=== PATIENT | female | born 1955 | race Caucasian/White ===

== ENCOUNTER 2016-06-16 13:50 | Emergency (ER) | payer BC ==
[2016-06-16] MEDS ORDERED: Nitroglycerin 0.4 MG Tab.SL SL ONE (14:38)
--- NOTE | 2016-06-16 14:39 | EDM.PDOC ---
[id number] 4d CHEST PAIN Time Seen by Provider: 06/16/16 14:20 Source of Information: Reports: Patient History Limitations: Reports: No limitations - History of Present Illness INITIAL COMMENTS - FREE TEXT/NARRATIVE: 60-year-old female who was been having intermittent chest pressure in the epigastric area and anterior chest intermittently for the past couple of months. It doesn't seem to be positional or related to activity. She initially had it 2 months ago, it resolved for several weeks but she has been getting more episodes and today was very persistent so she came in to have it checked. No shortness of breath or diaphoresis, no nausea or vomiting. No radiation of pain to her back. Onset: unknown/unsure Location: Reports: chest, abdomen Quality: Reports: Pressure Severity: moderate Associated Symptoms: Reports: denies other symptoms - Related Data Allergies Allergy/AdvReac Type Severity Reaction Status Date / Time cephalexin [Cephalexin] Allergy Hives Verified 07/27/14 10:14 Penicillins Allergy Swelling Verified 07/27/14 10:14 Sulfa (Sulfonamide Allergy Swelling Verified 07/27/14 10:14 Antibiotics) Home Meds: Home Meds Aspirin [Halfprin] 81 mg PO DAILY 11/06/12 [History] Hydrochlorothiazide 25 mg PO DAILY 11/06/12 [History] Simvastatin [Zocor] 20 mg PO BEDTIME 11/06/12 [History] Verapamil HCl [Verapamil ER] 180 mg PO DAILY 11/06/12 [History] Metoprolol Tartrate 50 mg PO DAILY #0 11/08/12 [Rx] Anastrozole [Anastrozole] 1 tab PO DAILY 07/27/14 [History] Calcium Carbonate [Calcium] 500 mg PO DAILY 07/27/14 [History] Cholecalciferol (Vitamin D3) [Vitamin D3] 1,000 unit PO DAILY 07/27/14 [History] Past Medical History - Past Health History Medical/Surgical History: Denies Medical/Surgical History Cardiovascular History: Reports: Hypertension Other OB/BYN History: R mastectomy - Past Surgical History HEENT Surgical History: Reports: Tonsillectomy GI Surgical History: Reports: Cholecystectomy Other GI Surgeries/Procedures: Laperoscopy Other Musculoskeletal Surgeries/Procedures:: ganglion cyst pylonidal cyst x3 Social & Family History - Tobacco Use Smoking Status *Q: Light Tobacco Smoker Years of Tobacco use: 30 Packs/Tins Daily: 0.5 Used Tobacco, but Quit: No Second Hand Smoke Exposure: No - Caffeine Use Caffeine Use: Reports: Coffee - Alcohol Use Days Per Week of Alcohol Use: 3 Number of Drinks Per Day: 3 Total Drinks Per Week: 9 - Recreational Drug Use Recreational Drug Use: No - Living Situation & Occupation Occupation: employed ([employer]) ED ROS GENERAL - Review of Systems Review Of Systems: See Below Constitutional: Denies: fever, chills, malaise HEENT: Reports: No symptoms Respiratory: Denies: Shortness of Breath, Pleuritic Chest Pain Cardiovascular: Reports: Chest pain. Denies: Palpitations Endocrine: Denies: fatigue GI/Abdominal: Reports: Abdominal pain (In the epigastric area only). Denies: Nausea : Reports: no symptoms Musculoskeletal: Reports: no symptoms Skin: Reports: no symptoms Neurological: Denies: Dizziness, Headache Psychiatric: Reports: No symptoms ED EXAM, GENERAL - Physical Exam Exam: See Below Exam Limited By: No limitations General Appearance: alert, no apparent distress Eye Exam: bilateral eye: normal inspection (No jaundice) Neck: normal inspection. No: carotid bruit Respiratory/Chest: no respiratory distress, lungs clear Cardiovascular: regular rate, rhythm, extra beats (Occasional extra beats) GI/Abdominal: soft, non tender (I could not reproduce tenderness to palpation) Extremities: normal inspection. No: pedal edema Neurological: alert, oriented Psychiatric: normal affect, normal mood Skin Exam: Warm, Dry EKG INTERPRETATION Rhythm: NSR (With occasional PACs) ST-T: normal Course - Vital Signs Last Recorded V/S: Last Vital Signs Temp 97.7 F 06/16/16 13:59 Pulse 57 L 06/16/16 15:00 Resp 16 06/16/16 15:00 BP 100/53 L 06/16/16 15:00 Pulse Ox 96 06/16/16 15:00 - Orders/Labs/Meds Orders: Active Orders 24 hr Category Date Time Status EKG Documentation Completion [RC] ASDIRECTED Care 06/16/16 16:28 Active Chest 2V [CR] Routine Exams 06/16/16 15:56 Taken EKG 12 Lead [EK] Routine Ther 06/16/16 16:28 Ordered Labs: Laboratory Tests 06/16/16 06/16/16 06/16/16 Range/Units 15:06 15:06 15:06 WBC 6.9 (4.5-11.0) K/uL RBC 3.82 (3.30-5.50) M/uL Hgb 12.7 D (12.0-15.0) g/dL Hct 37.9 (36.0-48.0) % MCV 99 H (80-98) fL MCH 33 H (27-31) pg MCHC 34 (32-36) % Plt Count 196 (150-400) K/uL Neut % (Auto) 58 (36-66) % Lymph % (Auto) 26 (24-44) % [place] % (Auto) 12 H (2-6) % Eos % (Auto) 2 (2-4) % Baso % (Auto) 1 (0-1) % D-Dimer, Quantitative < 100 (0.0-400.0) ng/mL Sodium 138 L (140-148) mmol/L Potassium 3.5 L (3.6-5.2) mmol/L Chloride 102 (100-108) mmol/L Carbon Dioxide 26 (21-32) mmol/L Anion Gap 13.5 (5.0-14.0) mmol/L BUN 20 H D (7-18) mg/dL Creatinine 1.5 H D (0.6-1.0) mg/dL Est Cr Clr Drug Dosing 35.38 mL/min Estimated GFR (MDRD) 35 L (>60) Glucose 106 (74-106) mg/dL Calcium 8.7 (8.5-10.1) mg/dL Total Bilirubin 0.5 (0.2-1.0) mg/dL AST 28 (15-37) U/L ALT 31 (12-78) U/L Alkaline Phosphatase 66 (46-116) U/L Troponin I < 0.017 (0.000-0.056) ng/mL Total Protein 6.8 (6.4-8.2) g/dL Albumin 3.8 (3.4-5.0) g/dL Globulin 3.0 (2.3-3.5) g/dL Albumin/Globulin Ratio 1.3 (1.2-2.2) Meds: Medications Discontinued Medications Generic Name Dose Route Start Last Admin Trade Name Freq PRN Reason Stop Dose Admin Nitroglycerin 0.4 mg 06/16/16 14:38 06/16/16 14:41 Nitrostat SL 06/16/16 14:39 0.4 mg ONETIME ONE Administration - Re-Assessments/Exams Free Text/Narrative Re-Assessment/Exam: 06/16/16 16:09 Initial EKG showed no acute findings, the patient was given one sublingual nitroglycerin and she claims she had good improvement. CBC CMP and troponin were obtained. Troponin was 0, CBC was normal. A two-view chest x-ray was then obtained. D- dimer was less than 100. 06/16/16 16:47 Patient will be set up for a Cardiolite stress test and encouraged to take a daily Prilosec or Zantac. She will return if worsening or concerns. Departure - Departure Time of Disposition: 17:15 Disposition: Home, Self-Care 01 Condition: good Clinical Impression: Atypical chest pain Instructions: Nonspecific Chest Pain, [id number] Referrals: PCP,None [Primary Care Provider] - Forms: ED Department Discharge Care Plan Goals: Activity as tolerated, and stress test as scheduled. At daily Zantac or Prilosec may be beneficial. Return any time if worsening such as increased pain with shortness of breath, nausea or vomiting, or pain radiating into the arms or neck. - My Orders Last 24 Hours: My Active Orders 06/16/16 15:56 Chest 2V [CR] Routine 06/16/16 16:28 EKG Documentation Completion [RC] ASDIRECTED EKG 12 Lead [EK] Routine - Assessment/Plan Last 24 Hours: My Active Orders 06/16/16 15:56 Chest 2V [CR] Routine 06/16/16 16:28 EKG Documentation Completion [RC] ASDIRECTED EKG 12 Lead [EK] Routine
[2016-06-16 15:12] VITALS: BP 100/53
--- NOTE | 2016-06-17 11:18 | CR ---
Chest 2V INDICATION: dyspnea FINDINGS: Comparison 03/09/2007. Normal heart size. Lungs are clear. Thoracic curve with degenerative changes.
== END 2016-06-16 17:08 | disposition home or self-care (01) ==
LOC: JP.ED 13:50
DX: R07.89 Other chest pain (principal); I10 Essential (primary) hypertension; F17.210 Nicotine dependence, cigarettes, uncomplicated; Z79.82 Long term (current) use of aspirin; Z79.899 Other long term (current) drug therapy; Z88.0 Allergy status to penicillin; Z88.1 Allergy status to other antibiotic agents; Z88.2 Allergy status to sulfonamides; Z90.11 Acquired absence of right breast and nipple; Z90.49 Acquired absence of other specified parts of digestive tract
CPT/HCPCS: 36415; 71020; 80053; 84484; 85025; 85379; 93005; 99285; A9270

== ENCOUNTER 2019-12-29 06:18 | Day surgery (SDC) | payer BC ==
[2019-12-29] MEDS ORDERED: Sodium Chloride 0.9% 10 ML Syringe FLUSH PRN (07:00)
[2019-12-29 08:14] VITALS: BP 131/76; PULSE 76
--- NOTE | 2019-12-29 08:44 | OR ---
DATE OF PROCEDURE: 12/29/2019 SURGEON: Araceli Shaffer MD POSTOPERATIVE CARE: Postoperative care will be provided mainly at the [address] [place] [address] [facility] in conjunction with [facility]. PREOPERATIVE DIAGNOSIS: Cataract, left eye. POSTOPERATIVE DIAGNOSIS: Cataract, left eye. PROCEDURE: Phacoemulsification with intraocular lens placement, left eye. ANESTHESIA: Topical and intracameral. ESTIMATED BLOOD LOSS: Minimal. COMPLICATIONS: None. PATHOLOGY SPECIMENS: None. SURGICAL FINDINGS: None. INDICATION FOR PROCEDURE: The patient is a 64-year-old female with history of a visually significant cataract in the left eye, which interfered with activities of daily living. This consisted of a nuclear sclerosis cataract. Following careful discussion of the risks, benefits and alternatives to cataract extraction with intraocular lens placement including blindness and , the patient elected to proceed, and informed, written consent was obtained prior to the procedure. DESCRIPTION OF THE PROCEDURE: The patient was previously identified, and a kanchan placed above the left eye. All sources, including the patient, indicated that the left eye was the correct eye. The patient was subsequently taken to the operating room where standard monitors were applied. The patient was then prepped and draped in the usual sterile fashion for ophthalmic surgery. Attention was first directed at the 12 o'clock position where a paracentesis port was fashioned. Shugar solution followed by Viscoat was instilled into the eye. Attention was then directed to the 8:30 position where a triplanar incision was made in a near-clear manner using a keratome. A continuous capsulorrhexis was then made using a combination of the cystotome and Utrata forceps. Hydrodissection was achieved using a balanced salt solution, and the lens rotated nicely. Phacoemulsification was then done using a modified [id number]-[id number] technique without complication. Phaco time was 6.34 CDE. The remaining cortex was removed using the irrigation/aspiration handpiece. Provisc was then instilled into the eye. A Technis lens, model PCB00, at 20.5 Diopters was then placed in the capsular bag using an [place] injector. The remaining viscoelastic was removed using the irrigation/aspiration forceps. All wounds were then checked and found to be watertight. The lid speculum and drapes were removed. Maxitrol ointment was placed in the patient's left eye, and the eye was shielded. The patient tolerated the procedure well. The patient was instructed to follow up tomorrow. All needle and sponge counts were correct at the end of the procedure. Araceli Shaffer MD /[id number]
== END 2019-12-29 08:34 | disposition home or self-care (01) ==
LOC: JP.SDS 06:18
PROVIDERS: ATTEND Ophthalmology
DX: H26.9 Unspecified cataract (principal); I25.10 Atherosclerotic heart disease of native coronary artery without angina pectoris; I10 Essential (primary) hypertension
CPT/HCPCS: V2632

== ENCOUNTER 2020-01-19 07:12 | Day surgery (SDC) | payer BC ==
[~2020-01-19 07:12] MED LIST: Sodium Chloride 0.9% 10 ML Syringe FLUSH PRN
[2020-01-19] MEDS ORDERED: Midazolam 1 MG/ML 2 ML SDV ONE (08:14)
[2020-01-19 09:01] VITALS: BP 136/74; PULSE 83
--- NOTE | 2020-01-19 11:50 | OR ---
DATE OF PROCEDURE: 01/19/2020 SURGEON: Araceli Shaffer MD POSTOPERATIVE CARE: Postoperative care will be provided mainly at the [address] [place] [address] [facility] in conjunction with [facility]. PREOPERATIVE DIAGNOSIS: Cataract, right eye. POSTOPERATIVE DIAGNOSIS: Cataract, right eye. PROCEDURE: Phacoemulsification with intraocular lens placement, right eye. ANESTHESIA: Topical and intracameral. ESTIMATED BLOOD LOSS: Minimal. COMPLICATIONS: None. PATHOLOGY SPECIMENS: None. SURGICAL FINDINGS: None. INDICATION FOR PROCEDURE: The patient is a 64-year-old female with history of a visually significant cataract in the right eye, which interfered with activities of daily living. This consisted of a nuclear sclerosis cataract. Following careful discussion of the risks, benefits and alternatives to cataract extraction with intraocular lens placement including blindness and , the patient elected to proceed, and informed, written consent was obtained prior to the procedure. DESCRIPTION OF THE PROCEDURE: The patient was previously identified, and a kanchan placed above the right eye. All sources, including the patient, indicated that the right eye was the correct eye. The patient was subsequently taken to the operating room where standard monitors were applied. The patient was then prepped and draped in the usual sterile fashion for ophthalmic surgery. Attention was first directed at the 12 o'clock position where a paracentesis port was fashioned. Shugar solution followed by Viscoat was instilled into the eye. Attention was then directed to the 8:30 position where a triplanar incision was made in a near-clear manner using a keratome. A continuous capsulorrhexis was then made using a combination of the cystotome and Utrata forceps. Hydrodissection was achieved using a balanced salt solution, and the lens rotated nicely. Phacoemulsification was then done using a modified opvefn-vbd-[id number] technique without complication. Phaco time was 5.48 CDE. The remaining cortex was removed using the irrigation/aspiration handpiece. Provisc was then instilled into the eye. A Technis lens, model PCB00, at 20.5 diopters was then placed in the capsular bag using an [place] injector. The remaining viscoelastic was removed using the irrigation/aspiration forceps. All wounds were then checked and found to be watertight. The lid speculum and drapes were removed. Maxitrol ointment was placed in the patient's right eye, and the eye was shielded. The patient tolerated the procedure well. The patient was instructed to follow up tomorrow. All needle and sponge counts were correct at the end of the procedure. Araceli Shaffer MD /[id number]
== END 2020-01-19 09:30 | disposition home or self-care (01) ==
LOC: JP.SDS 07:12
PROVIDERS: ATTEND Ophthalmology
DX: H26.9 Unspecified cataract (principal); I25.10 Atherosclerotic heart disease of native coronary artery without angina pectoris; I10 Essential (primary) hypertension
CPT/HCPCS: J2250; V2632

== ENCOUNTER 2020-01-25 15:41 | Emergency (ER) | payer BC ==
[2020-01-25] MEDS ORDERED: Potassium Chloride 10 MEQ Cap.ER PO ONE (16:21)
--- NOTE | 2020-01-25 16:27 | EDM.PDOC ---
ED HPI GENERAL MEDICAL PROBLEM - General Chief Complaint: Cardiovascular Problem Stated Complaint: LOW BLOOD PRESSURE Time Seen by Provider: 01/25/20 16:10 Source of Information: Reports: Patient, Old Records, RN History Limitations: Reports: No Limitations - History of Present Illness INITIAL COMMENTS - FREE TEXT/NARRATIVE: 64 yo female was seen in the clinic today, Thursday and Thursday. On Thursday a Covid test was ordered and is still pending. Had cataract surgery to the R eye this past . Yesterday her BP was noted to be low so she was given a liter of IV fluids in the infusion center. Today her BP was low again so she was given another liter of IV fluids and today her BP did not come back up sufficiently so she was referred to the ER. She was noted yesterday and today to have hyponatremia and hypokalemia. She denies CP or SOB. Is achy over and feels weak. Has had some loose stools. Onset: Gradual Onset Date: 01/22/20 Duration: Day(s):, Getting Worse Location: Reports: Generalized Quality: Reports: Ache Severity: Moderate Improves with: Reports: None Worsens with: Reports: Other (time) Context: Reports: Other (See HPI) Associated Symptoms: Reports: Malaise, Weakness (generalized). Denies: Chest Pain, Cough, Fever/Chills, Nausea/Vomiting Treatments SAMPLE WEAVER: Reports: IV/IO Generalized Pain Score (Numeric/FACES): 7 - Related Data Allergies Allergy/AdvReac Type Severity Reaction Status Date / Time cephalexin [Cephalexin] Allergy Hives Verified 01/25/20 16:16 Penicillins Allergy Swelling Verified 01/25/20 16:16 Sulfa (Sulfonamide Allergy Swelling Verified 01/25/20 16:16 Antibiotics) codeine AdvReac Nausea and Verified 01/25/20 16:16 Vomiting Home Meds: Home Meds Simvastatin [Zocor] 20 mg PO BEDTIME 11/06/12 [History] Verapamil HCl [Verapamil ER] 360 mg PO DAILY 11/06/12 [History] hydroCHLOROthiazide [Hydrochlorothiazide] 50 mg PO DAILY 11/06/12 [History] lisinopriL [Lisinopril] 10 mg PO DAILY 12/27/19 [History] Aspirin [Halfprin] 81 mg PO DAILY 12/29/19 [History] Potassium Chloride 20 meq PO DAILY 01/25/20 [History] ondansetron HCL [Zofran] 4 mg PO Q8H 01/25/20 [History] Past Medical History - Past Health History Medical/Surgical History: Denies Medical/Surgical History HEENT History: Reports: Cataract Cardiovascular History: Reports: Hypertension Gastrointestinal History: Reports: Cholelithiasis Genitourinary History: Reports: None 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 pilonidol cyst remove Female Surgical History: Reports: Mastectomy Musculoskeletal Surgical History: Reports: Other (See Below) Other Musculoskeletal Surgeries/Procedures:: ganglion cyst pylonidal cyst x3 Social & Family History - Family History Family Medical History: No Pertinent Family History - Caffeine Use Caffeine Use: Reports: Coffee - Living Situation & Occupation Occupation: Employed ED ROS GENERAL - Review of Systems Review Of Systems: See Below Constitutional: Reports: Malaise, Weakness HEENT: Reports: No Symptoms Respiratory: Reports: No Symptoms Cardiovascular: Reports: No Symptoms GI/Abdominal: Reports: No Symptoms : Reports: No Symptoms Musculoskeletal: Reports: No Symptoms Skin: Reports: No Symptoms Neurological: Reports: No Symptoms ED EXAM, GENERAL - Physical Exam Exam: See Below Exam Limited By: No Limitations General Appearance: Alert, WD/WN, No Apparent Distress Eye Exam: Bilateral Eye: Normal Inspection Ears: Normal External Exam, Normal Canal, Hearing Grossly Normal, Normal TMs Ear Exam: Bilateral Ear: Auricle Normal, Canal Normal, TM normal Nose: Normal Inspection, No Blood Throat/Mouth: Normal Inspection, Normal Lips, Normal Oropharynx, Normal Voice, No Airway Compromise Head: Atraumatic, Normocephalic Neck: Normal Inspection Respiratory/Chest: No Respiratory Distress, Lungs Clear, Normal Breath Sounds, No Accessory Muscle Use Cardiovascular: Regular Rate, Rhythm, No Edema, Bradycardia GI/Abdominal: Normal Bowel Sounds, Soft, Non-Tender, No Distention Back Exam: Normal Inspection. No: CVA Tenderness (R), CVA Tenderness (L) Extremities: Normal Inspection, Normal Range of Motion, Non-Tender, No Pedal Edema Neurological: Alert, Oriented, CN II-XII Intact, Normal Cognition, No Motor/Sensory Deficits Psychiatric: Normal Affect, Normal Mood Skin Exam: Warm, Dry, Intact, Normal Color, No Rash Course - Vital Signs Last Recorded V/S: Last Vital Signs Temp 35.7 C L 01/25/20 16:03 Pulse 52 L 01/25/20 17:55 Resp 12 01/25/20 17:55 BP 77/41 L 01/25/20 17:55 Pulse Ox 100 01/25/20 17:55 - Orders/Labs/Meds Orders: Active Orders 24 hr Category Date Time Status Cardiac Monitoring [RC] .As Directed Care 01/25/20 16:17 Active Magnesium Sulfate/Water [Magnesium Sulfate in Water Med 01/25/20 17:12 Active Premix] 2 gm Premix Bag 1 bag IV ONETIME NS + KCl 20mEq/L [Normal Saline with 20 mEq KCl] 1,000 Med 01/25/20 16:30 Active ml IV ASDIRECTED Medication Orders Potassium Chloride/Sodium Chloride (Normal Saline With 20 Meq Kcl) 1,000 mls @ 1,000 mls/hr IV ASDIRECTED ELSY Last Admin: 01/25/20 16:51 Dose: 1,000 mls/hr Documented by: PREILOR Magnesium Sulfate 2 gm/ Premix 50 mls @ 25 mls/hr IV ONETIME ONE Stop: 01/25/20 19:11 Last Admin: 01/25/20 17:48 Dose: 25 mls/hr Documented by: PREILOR Labs: Laboratory Tests 01/25/20 01/25/20 Range/Units 16:37 16:37 Magnesium 1.3 L (1.8-2.4) mg/dL Troponin I < 0.017 (0.000-0.056) ng/mL Meds: Medications Generic Name Dose Route Start Last Admin Trade Name Freq PRN Reason Stop Dose Admin Potassium Chloride/Sodium Chloride 1,000 mls @ 1,000 mls/hr 01/25/20 16:30 01/25/20 16:51 Normal Saline With 20 Meq Kcl IV 1,000 mls/hr ASDIRECTED ELSY Administration Magnesium Sulfate 2 gm/ Premix 50 mls @ 25 mls/hr 01/25/20 17:12 01/25/20 17:48 IV 01/25/20 19:11 25 mls/hr ONETIME ONE Administration Discontinued Medications Generic Name Dose Route Start Last Admin Trade Name Orin PRN Reason Stop Dose Admin Acetaminophen 1,000 mg 01/25/20 16:39 01/25/20 16:54 Tylenol Extra Strength PO 01/25/20 16:40 1,000 mg ONETIME ONE Administration Acetaminophen Confirm 01/25/20 16:41 Tylenol Extra Strength Administered 01/25/20 16:42 Dose 1,000 mg .ROUTE .STK-MED ONE Magnesium Oxide 800 mg 01/25/20 17:12 01/25/20 17:46 Magnesium Oxide PO 01/25/20 17:13 800 mg ONETIME ONE Administration Potassium Chloride 40 meq 01/25/20 16:21 01/25/20 16:53 Potassium Chloride PO 01/25/20 16:22 40 meq ONETIME ONE Administration Departure - Departure Time of Disposition: 19:00 Disposition: Home, Self-Care 01 Condition: Fair Clinical Impression: Viral illness, Hyponatremia, Hypokalemia, Hypomagnesemia Low BP Qualifiers: Hypotension type: unspecified hypotension type Qualified Code(s): I95.9 - Hypotension, unspecified Referrals: Theo Dykes MD [Primary Care Provider] - Forms: ED Department Discharge Additional Instructions: Drink a sugar-free sport drink to maintain hydration. Take acetaminophen 1000 mg every 6 hrs with food for pain relief. Hold all your BP meds. Recheck in the clinic on Thursday. Avoid other people due to your likely contagious state. Return as needed. Sepsis Event Note (ED) - Evaluation Sepsis Screening Result: No Definite Risk - Focused Exam Vital Signs: Vital Signs Temp Pulse Resp BP Pulse Ox 01/25/20 17:55 52 L 12 77/41 L 100 01/25/20 17:20 55 L 18 85/45 L 100 01/25/20 16:50 55 L 18 87/48 L 98 01/25/20 16:25 48 L 16 76/42 L 100 01/25/20 16:03 35.7 C L 47 L 16 77/41 L 94 L - My Orders Last 24 Hours: My Active Orders 01/25/20 16:17 Cardiac Monitoring [RC] .As Directed 01/25/20 16:30 NS + KCl 20mEq/L [Normal Saline with 20 mEq KCl] 1,000 ml IV ASDIRECTED 01/25/20 17:12 Magnesium Sulfate/Water [Magnesium Sulfate in Water Premix] 2 gm Premix Bag 1 bag IV ONETIME - Assessment/Plan Last 24 Hours: My Active Orders 01/25/20 16:17 Cardiac Monitoring [RC] .As Directed 01/25/20 16:30 NS + KCl 20mEq/L [Normal Saline with 20 mEq KCl] 1,000 ml IV ASDIRECTED 01/25/20 17:12 Magnesium Sulfate/Water [Magnesium Sulfate in Water Premix] 2 gm Premix Bag 1 bag IV ONETIME
[2020-01-25] MEDS ORDERED: NS + KCl 20mEq/L 1,000 ML IV SCH (16:30)
[2020-01-25] MEDS ORDERED: Acetaminophen 500 MG Tab PO ONE (16:39)
[2020-01-25] MEDS ORDERED: Acetaminophen 500 MG Tab ONE (16:41)
[2020-01-25] MEDS ORDERED: Magnesium Oxide 400 MG Tab PO ONE (17:12)
[2020-01-25] MEDS ORDERED: Magnesium Sulfate/Water 2 GM in Premix Bag 1 BAG IV ONE (17:12)
[2020-01-25 18:57] VITALS: BP 72/34; PULSE 54
== END 2020-01-25 20:13 | disposition home or self-care (01) ==
LOC: JP.ED 15:41
DX: B34.9 Viral infection, unspecified (principal); E87.1 Hypo-osmolality and hyponatremia; E87.6 Hypokalemia; E83.42 Hypomagnesemia; I95.9 Hypotension, unspecified; I10 Essential (primary) hypertension; Z88.1 Allergy status to other antibiotic agents; Z88.0 Allergy status to penicillin; Z88.2 Allergy status to sulfonamides; Z88.5 Allergy status to narcotic agent; Z79.899 Other long term (current) drug therapy; Z79.82 Long term (current) use of aspirin
CPT/HCPCS: 36415; 83735; 84484; 96365; 96366; 96367; 99284; A9270; J3475; J3480

== ENCOUNTER 2023-03-31 12:06 | Emergency (ER) | payer OTHER ==
[2023-03-31] MEDS ORDERED: Aspirin 81 MG Tab.Chew PO ONE (12:28)
[2023-03-31] MEDS ORDERED: Sodium Chloride 0.9% 1,000 ML IV SCH (12:30)
[2023-03-31 12:32] LABS: BASOPHILS ABSOLUTE AUTO 0.07 K/uL (0.00-0.10); BASOPHILS PERCENT AUTO 1.2 % (0.1-1.3); EOSINOPHILS PERCENT AUTO 0.3 % (0.0-5.4); HEMOGLOBIN 13.3 g/dL (11.2-15.5); IMMATURE GRAN PERCENT AUTO 0.3 % (0.0-0.7); LYMPHOCYTES ABSOLUTE AUTO 1.59 K/uL (0.8-3.3); LYMPHOCYTES PERCENT AUTO 27.3 % (11.4-47.7); MEAN CORPUSCULAR HEMOGLOBIN 34.9 pg (31.6-35.5); MEAN CORPUSCULAR HGB CONC 33.3 g/dL (31.6-35.5); MONOCYTES ABSOLUTE AUTO 0.84 K/uL (0.20-0.90); MONOCYTES PERCENT AUTO 14.4 % (3.3-12.6); NEUTROPHILS ABSOLUTE AUTO 3.28 K/uL (1.0-7.6); NEUTROPHILS PERCENT AUTO 56.5 % (40.0-78.1); PLATELET COUNT,PLT 274 K/uL (130-375); RED BLOOD CELL COUNT 3.81 M/uL (3.77-5.24); WHITE BLOOD CELL COUNT,WBC 5.8 K/uL (3.2-11.0)
[2023-03-31 12:33] LABS: EOSINOPHILS ABSOLUTE AUTO 0.02 K/uL (0.00-0.40); IMMATURE GRAN ABSOLUTE AUTO 0.02 K/uL (0.00-0.23)
[2023-03-31] MEDS: Nitroglycerin 0.4 MG Tab.SL SL PRN ×2 (13:01→13:13)
[2023-03-31 13:20] LABS: A/G RATIO 1.1 (1.2-2.2); ALANINE AMINOTRANSFERASE,ALT 35 U/L (12-78); ALBUMIN 3.9 g/dL (3.4-5.0); ALKALINE PHOSPHATASE 75 U/L (46-116); ANION GAP 17.6 mmol/L (5.0-14.0); ASPARTATE AMNIOTRANSFERASE,AST 29 U/L (15-37); BILIRUBIN TOTAL 0.3 mg/dL (0.2-1.0); BLOOD UREA NITROGEN,BUN 26 mg/dL (7-18); CALCIUM 8.9 mg/dL (8.5-10.1); CARBON DIOXIDE,CO2 22 mmol/L (21-32); CHLORIDE,CL 100 mmol/L (100-108); CREATININE 0.8 mg/dL (0.6-1.0); EST CRCL DRUG DOSING (CG) 55.68 mL/min; ESTIMATED GFR 80 mL/min (>60); GLUCOSE RANDOM 93 mg/dL (74-106); POTASSIUM,K 4.6 mmol/L (3.6-5.2); PRO B-TYPE NATRIUR PEPT,BNPPRO 213 pg/mL (5-125); PROTEIN TOTAL,TP 7.3 g/dL (6.4-8.2); SODIUM,NA 135 mmol/L (140-148); TROPONIN I HIGH SENSITIVITY 13.4 pg/mL (<=60.3)
[2023-03-31 14:13] VITALS: BP 148/71; PULSE 67
== END 2023-03-31 15:24 | disposition home or self-care (01) ==
LOC: JP.ED 12:06
DX: R07.9 Chest pain, unspecified (principal); I10 Essential (primary) hypertension; F17.210 Nicotine dependence, cigarettes, uncomplicated; Z79.82 Long term (current) use of aspirin; Z79.899 Other long term (current) drug therapy; Z88.5 Allergy status to narcotic agent; Z88.0 Allergy status to penicillin; Z88.2 Allergy status to sulfonamides
CPT/HCPCS: 36415; 71045; 71045-26; 80053; 83605; 83880; 84484; 85025; 85379; 85610; 93005; 93010; 99284; 99285; A9270-GY; J7030

== ENCOUNTER 2023-06-07 10:27 | Emergency (ER) | payer OTHER ==
[2023-06-07 11:05] VITALS: BP 190/71; PULSE 55
[2023-06-07 11:15] LABS: BASOPHILS ABSOLUTE AUTO 0.04 K/uL (0.00-0.10); BASOPHILS PERCENT AUTO 0.5 % (0.1-1.3); EOSINOPHILS ABSOLUTE AUTO 0.05 K/uL (0.00-0.40); EOSINOPHILS PERCENT AUTO 0.7 % (0.0-5.4); HEMATOCRIT 37.8 % (34.3-46.0); HEMOGLOBIN 13.2 g/dL (11.2-15.5); IMMATURE GRAN PERCENT AUTO 0.3 % (0.0-0.7); LYMPHOCYTES ABSOLUTE AUTO 1.49 K/uL (0.8-3.3); LYMPHOCYTES PERCENT AUTO 20.4 % (11.4-47.7); MEAN CORPUSCULAR HEMOGLOBIN 34.9 pg (31.6-35.5); MEAN CORPUSCULAR HGB CONC 34.9 g/dL (31.6-35.5); MONOCYTES ABSOLUTE AUTO 0.72 K/uL (0.20-0.90); MONOCYTES PERCENT AUTO 9.8 % (3.3-12.6); NEUTROPHILS ABSOLUTE AUTO 4.99 K/uL (1.0-7.6); NEUTROPHILS PERCENT AUTO 68.3 % (40.0-78.1); PLATELET COUNT,PLT 301 K/uL (130-375); RED BLOOD CELL COUNT 3.78 M/uL (3.77-5.24); WHITE BLOOD CELL COUNT,WBC 7.3 K/uL (3.2-11.0)
[2023-06-07 11:16] LABS: IMMATURE GRAN ABSOLUTE AUTO 0.02 K/uL (0.00-0.23)
[2023-06-07] MEDS: diphenhydrAMINE 50 MG/ML SDV IVPUSH ONE (11:27)
[2023-06-07] MEDS: Sodium Chloride 0.9% 1,000 ML IV ONE (11:29)
[2023-06-07 11:34] LABS: A/G RATIO 1.1 (1.2-2.2); ALANINE AMINOTRANSFERASE,ALT 29 U/L (12-78); ALBUMIN 3.9 g/dL (3.4-5.0); ALKALINE PHOSPHATASE 83 U/L (46-116); ASPARTATE AMNIOTRANSFERASE,AST 30 U/L (15-37); BILIRUBIN TOTAL 0.5 mg/dL (0.2-1.0); BLOOD UREA NITROGEN,BUN 9 mg/dL (7-18); CALCIUM 9.2 mg/dL (8.5-10.1); CARBON DIOXIDE,CO2 21 mmol/L (21-32); CHLORIDE,CL 94 mmol/L (100-108); CREATININE 0.6 mg/dL (0.6-1.0); EST CRCL DRUG DOSING (CG) 77.49 mL/min; ESTIMATED GFR 98 mL/min (>60); GLUCOSE RANDOM 94 mg/dL (74-106); POTASSIUM,K 4.4 mmol/L (3.6-5.2); PROTEIN TOTAL,TP 7.3 g/dL (6.4-8.2); SODIUM,NA 127 mmol/L (140-148)
[2023-06-07 11:35] LABS: ANION GAP 16.4 mmol/L (5.0-14.0)
[2023-06-07 11:37] LABS: LACTIC ACID 1.1 mmol/L (0.4-2.0)
[2023-06-07] MEDS: Iopamidol 612 MG/ML 100 ML Bottle IV SCH (12:15)
[2023-06-07] MEDS: Sodium Chloride 0.9% 80 ML IV SCH (12:15)
[2023-06-07] MEDS: Sodium Chloride 0.9% 10 ML Syringe FLUSH ONE (12:15)
[2023-06-07] MEDS: Clindamycin in 0.9 % Sod Chlor 600 MG in Premix Bag 1 BAG IV ONE (15:57)
== END 2023-06-07 16:31 | disposition home or self-care (01) ==
LOC: JP.ED 10:27
DX: S02.32XA Fracture of orbital floor, left side, initial encounter for closed fracture (principal); J32.0 Chronic maxillary sinusitis; I25.10 Atherosclerotic heart disease of native coronary artery without angina pectoris; E78.00 Pure hypercholesterolemia, unspecified; I10 Essential (primary) hypertension; F17.210 Nicotine dependence, cigarettes, uncomplicated; Z88.1 Allergy status to other antibiotic agents; Z88.0 Allergy status to penicillin; Z88.2 Allergy status to sulfonamides; Z88.5 Allergy status to narcotic agent; Z79.82 Long term (current) use of aspirin; Z79.899 Other long term (current) drug therapy; Z90.49 Acquired absence of other specified parts of digestive tract; X58.XXXA Exposure to other specified factors, initial encounter
CPT/HCPCS: 36415; 70481; 80053; 83605; 85025; 86140; 96361; 96365; 96375; 99284; J1200; J3490; J7030; Q9967

== ENCOUNTER 2023-10-19 10:44 | Emergency (ER) | payer OTHER ==
[2023-10-19 11:04] VITALS: PULSE 54
[2023-10-19 11:33] LABS: BASOPHILS ABSOLUTE AUTO 0.08 K/uL (0.00-0.10); BASOPHILS PERCENT AUTO 1.3 % (0.1-1.3); EOSINOPHILS ABSOLUTE AUTO 0.19 K/uL (0.00-0.40); EOSINOPHILS PERCENT AUTO 3.2 % (0.0-5.4); HEMATOCRIT 34.8 % (34.3-46.0); HEMOGLOBIN 12.4 g/dL (11.2-15.5); IMMATURE GRAN PERCENT AUTO 0.2 % (0.0-0.7); LYMPHOCYTES ABSOLUTE AUTO 2.21 K/uL (0.8-3.3); MEAN CORPUSCULAR HEMOGLOBIN 36.5 pg (31.6-35.5); MEAN CORPUSCULAR HGB CONC 35.6 g/dL (31.6-35.5); MEAN CORPUSCULAR VOLUME 102.4 fL (81.4-99.0); MONOCYTES ABSOLUTE AUTO 0.61 K/uL (0.20-0.90); MONOCYTES PERCENT AUTO 10.2 % (3.3-12.6); NEUTROPHILS ABSOLUTE AUTO 2.87 K/uL (1.0-7.6); NEUTROPHILS PERCENT AUTO 48.1 % (40.0-78.1); PLATELET COUNT,PLT 266 K/uL (130-375)
[2023-10-19 11:36] LABS: IMMATURE GRAN ABSOLUTE AUTO 0.01 K/uL (0.00-0.23)
[2023-10-19 11:50] LABS: ANION GAP 12.6 mmol/L (5.0-14.0); CALCIUM 8.8 mg/dL (8.5-10.1); CREATININE 0.8 mg/dL (0.6-1.0); EST CRCL DRUG DOSING (CG) 55.68 mL/min; POTASSIUM,K 4.6 mmol/L (3.6-5.2)
[2023-10-19] MEDS: Aspirin 81 MG Tab.Chew PO ONE (12:03)
[2023-10-19 12:05] VITALS: BP 155/67
== END 2023-10-19 13:06 | disposition home or self-care (01) ==
LOC: JP.ED 10:44
DX: R07.9 Chest pain, unspecified (principal); E78.00 Pure hypercholesterolemia, unspecified; I10 Essential (primary) hypertension; I25.10 Atherosclerotic heart disease of native coronary artery without angina pectoris; Z90.49 Acquired absence of other specified parts of digestive tract; F17.210 Nicotine dependence, cigarettes, uncomplicated; Z79.899 Other long term (current) drug therapy; Z79.82 Long term (current) use of aspirin; Z88.2 Allergy status to sulfonamides; Z88.0 Allergy status to penicillin; Z88.8 Allergy status to other drugs, medicaments and biological substances; Z88.5 Allergy status to narcotic agent
CPT/HCPCS: 36415; 71046; 80048; 84484; 85025; 93005; 99285; A9270

== ENCOUNTER 2024-09-26 14:25 | Emergency (ER) | payer OTHER ==
[2024-09-26] MEDS ORDERED: Sodium Chloride 0.9% 10 ML Syringe FLUSH PRN (14:44)
[2024-09-26 14:49] LABS: BASOPHILS ABSOLUTE AUTO 0.02 K/uL (0.00-0.10); BASOPHILS PERCENT AUTO 0.7 % (0.1-1.3); EOSINOPHILS ABSOLUTE AUTO 0.02 K/uL (0.00-0.40); EOSINOPHILS PERCENT AUTO 0.7 % (0.0-5.4); IMMATURE GRAN ABSOLUTE AUTO 0.01 K/uL (0.00-0.23); IMMATURE GRAN PERCENT AUTO 0.3 % (0.0-0.7); LYMPHOCYTES ABSOLUTE AUTO 0.50 K/uL (0.8-3.3); LYMPHOCYTES PERCENT AUTO 17.1 % (11.4-47.7); MONOCYTES ABSOLUTE AUTO 0.05 K/uL (0.20-0.90); MONOCYTES PERCENT AUTO 1.7 % (3.3-12.6); NEUTROPHILS ABSOLUTE AUTO 2.32 K/uL (1.0-7.6); NEUTROPHILS PERCENT AUTO 79.5 % (40.0-78.1); PLATELET COUNT,PLT 220 K/uL (130-375); RED BLOOD CELL COUNT 3.31 M/uL (3.77-5.24); WHITE BLOOD CELL COUNT,WBC 2.9 K/uL (3.2-11.0)
[2024-09-26] MEDS: Nitroglycerin 0.4 MG Tab.SL SL PRN (14:50)
[2024-09-26 15:06] LABS: A/G RATIO 1.3 (1.2-2.2); ALANINE AMINOTRANSFERASE,ALT 45 U/L (12-78); ASPARTATE AMNIOTRANSFERASE,AST 43 U/L (15-37); BILIRUBIN TOTAL 0.9 mg/dL (0.2-1.0); BLOOD UREA NITROGEN,BUN 22 mg/dL (7-18); CARBON DIOXIDE,CO2 26 mmol/L (21-32); CHLORIDE,CL 102 mmol/L (100-108); CREATININE 0.8 mg/dL (0.6-1.0); EST CRCL DRUG DOSING (CG) 54.90 mL/min; ESTIMATED GFR 80 mL/min (>60); GLUCOSE RANDOM 75 mg/dL (74-106); POTASSIUM,K 4.0 mmol/L (3.6-5.2); PROTEIN TOTAL,TP 7.2 g/dL (6.4-8.2); SODIUM,NA 138 mmol/L (140-148); TROPONIN I HIGH SENSITIVITY 22.9 pg/mL (<=60.3)
[2024-09-26 15:07] LABS: INR 1.0
[2024-09-26] MEDS: Ondansetron 4 MG/2 ML SDV IVPUSH ONE (15:47)
[2024-09-26] MEDS: Alum Hydrox/Mag Hydrox/Simeth 15 ML, Lidocaine 2% 15 ML PO ONE (17:18)
[2024-09-26] MEDS: Iopamidol 755 Mg/ML 100 ML Bottle IV SCH (17:31)
[2024-09-26 18:46] VITALS: BP 150/60; PULSE 76
== END 2024-09-26 18:59 | disposition home or self-care (01) ==
LOC: JP.ED 14:25
DX: R07.89 Other chest pain (principal); I25.10 Atherosclerotic heart disease of native coronary artery without angina pectoris; I10 Essential (primary) hypertension; E78.00 Pure hypercholesterolemia, unspecified; Z90.49 Acquired absence of other specified parts of digestive tract; Z88.2 Allergy status to sulfonamides; Z88.5 Allergy status to narcotic agent; Z88.8 Allergy status to other drugs, medicaments and biological substances; Z79.899 Other long term (current) drug therapy; Z79.82 Long term (current) use of aspirin
CPT/HCPCS: 36415; 71045; 71275; 80053; 83605; 84484; 85025; 85379; 85610; 93005; 96374; 96375; 99285; A9270; J1790; J2270; J2405; J7030; Q9967